=== PATIENT | male | born 1965 | race Caucasian/White ===

== ENCOUNTER → 2020-10-23 | Outpatient (CLI) | payer BC ==
[~2020-10-23] MED LIST: NORCO 10-325 T1 EACH PO; ZYLOPRIM 300 M300 MG PO
== END ==
LOC: CT 08:30
DX: R31.9 Hematuria, unspecified (principal); N20.0 Calculus of kidney

== ENCOUNTER 2021-11-17 08:46 | Inpatient (IN) | payer BC ==
[~2021-11-17] VITALS: Ht 188 cm; Wt 90.7 kg
[~2021-11-17 08:46] MED LIST changes: +ALLOPURINOL100 MG PO; +COLCHICINE0.6 MG PO; +FISH OIL 1,0001 EACH PO; +PREDNISONE 10 M10 MG PO; +TURMERIC500 M2 PO
[2021-11-17 09:49] LABS: HEMOGLOBIN 12.4 gm/dl (14.0-17.5); RED BLOOD COUNT 4.37 M/UL (4.20-5.50); WHITE BLOOD COUNT 18.1 K/UL (4.5-11.0)
[2021-11-17 10:23] LABS: BUN/CREATININE RATIO 13 (0-10)
[2021-11-17] MEDS ORDERED: ULORIC 40 MG TA40 MG PO (12:12)
[2021-11-17] MEDS ORDERED: COLCHICINE0.6 MG PO (12:14)
[2021-11-17 15:22] LABS: MONONUCLEAR CELLS 3.5 %; POLYMORPHONUCLEAR 96.5 %; RBC (AUTOMATED) 23200 10^6; WBC (AUTOMATED) 62560 10^3
[2021-11-18 04:11] LABS: HEMOGLOBIN 9.9 gm/dl (14.0-17.5); RED BLOOD COUNT 3.51 M/UL (4.20-5.50); WHITE BLOOD COUNT 9.7 K/UL (4.5-11.0)
[2021-11-19 02:26] LABS: HEMOGLOBIN 10.1 gm/dl (14.0-17.5); RED BLOOD COUNT 3.55 M/UL (4.20-5.50)
[2021-11-20 02:26] LABS: HEMOGLOBIN 9.6 gm/dl (14.0-17.5); RED BLOOD COUNT 3.4 M/UL (4.20-5.50); WHITE BLOOD COUNT 10.7 K/UL (4.5-11.0)
[2021-11-20] MEDS ORDERED: HYDROCODON-ACE1 EAC2 PO (09:31)
[2021-11-20] MEDS ORDERED: ULORIC80 MG PO (09:31)
[2021-11-20] MEDS ORDERED: COLCHICINE0.6 MG PO (09:31)
== END 2021-11-20 10:53 | disposition home or self-care (01) | DRG 488 ==
LOC: ER1 08:46 → CDU 11:30 → CCU 11:30 → PROG CARE 11:30 → CCU 14:45 → PROG CARE 11-18 10:37
PROVIDERS: Internal Medicine; Internal Medicine Infectious Disease; Orthopaedic Surgery; Physician Assistant; ADMIT Internal Medicine
PROC: 0S9C3ZZ Drainage of Right Knee Joint, Percutaneous Approach (ICD-10-PCS; 2021-11-17)
PROC: 0S9C0ZZ Drainage of Right Knee Joint, Open Approach (ICD-10-PCS; principal; 2021-11-18 13:45)
PROC: B24BZZZ Ultrasonography of Heart with Aorta (ICD-10-PCS; 2021-11-19)
DX: M10.061 Idiopathic gout, right knee (principal); I47.1 Supraventricular tachycardia; N17.9 Acute kidney failure, unspecified; Z20.822 Contact with and (suspected) exposure to COVID-19; I12.9 Hypertensive chronic kidney disease with stage 1 through stage 4 chronic kidney disease, or unspecified chronic kidney disease; N18.30 Chronic kidney disease, stage 3 unspecified; E87.5 Hyperkalemia; I08.1 Rheumatic disorders of both mitral and tricuspid valves; M25.531 Pain in right wrist; M25.461 Effusion, right knee; Z82.49 Family history of ischemic heart disease and other diseases of the circulatory system
CPT/HCPCS: ECHO; 0240U; 36415; 71045; 73110; 73562; 80048; 80053; 80202; 81001; 82043; 82550; 82553; 82570; 83605; 83735; 84156; 84484; 84550; 85025; 85027; 85652; 86140; 87040; 87070; 87081; 87205; 89051; 89060; 93005; 93306; 96374; 96375; 97116; 97161; 97165; 99284; J0696; J1100; J1170; J1885; J2001; J2185; J2270; J2405; J2704; J3370; J7070